=== PATIENT | female | born 1990 ===

== ENCOUNTER 2018-07-15 20:28 | Emergency (ER) | payer SELFPAY ==
[~2018-07-15] VITALS: Ht 180.3 cm; Wt 77.1 kg
--- NOTE | 2018-07-15 21:22 | NUR ---
Patient discharged to home in stable conditon. Written and verbal after care instructions given. Patient verbalizes understanding of instructions. PATIENT LEFT WITH STABLE GAIT.
[2018-07-15 21:23] VITALS: BP 113/61
== END 2018-07-15 21:23 | disposition home or self-care (01) ==
LOC: ER 20:30
DX: M54.5 Low back pain (principal); Z76.0 Encounter for issue of repeat prescription; F17.200 Nicotine dependence, unspecified, uncomplicated
CPT/HCPCS: A4663